=== PATIENT | female | born 1995 | race Caucasian/White ===

== ENCOUNTER 2017-05-20 06:25 | Inpatient (IN) | payer OTHER ==
[~2017-05-20] VITALS: Ht 162.6 cm; Wt 77.3 kg
[2017-05-20 07:06] VITALS: Ht 162.6 cm; Wt 77.3 kg
[2017-05-20 07:16] VITALS: BP 115/66; PULSE 85; RESP 16
[2017-05-20] MEDS ORDERED: LACTATED RINGER'S 1,000 ML IV SCH (07:17)
[2017-05-20] MEDS ORDERED: OXYTOCIN 30 UNITS/LR 500 ML IV PRN ×3 (07:30→14:30)
[2017-05-20] MEDS ORDERED: MISOPROSTOL 200 MCG TAB PR PRN ×3 (07:30→14:30)
[2017-05-20] MEDS ORDERED: METHYLERGONOVINE 0.2 MG INJ IM PRN ×3 (07:30→14:30)
[2017-05-20] MEDS ORDERED: CEFAZOLIN 2 GM/50 ML (PMX) 50 ML IV SCH (07:30)
[2017-05-20] MEDS ORDERED: CARBOPROST 250 MCG INJ IM PRN ×3 (07:30→14:30)
[2017-05-20 07:41] LABS: BASOPHIL # 0.1 10^3/ul (0.0-0.1); BASOPHILS % 0.6 % (0.0-2.0); EOSINOPHILS # 0.1 10^3/ul (0.0-0.5); EOSINOPHILS % 0.8 % (0.0-7.0); HEMATOCRIT 34.9 % (37.0-47.0); HEMOGLOBIN 11.3 g/dl (12.0-16.0); LYMPHOCYTES # 2.6 10^3/ul (0.8-2.9); LYMPHOCYTES % 27.7 % (15.0-51.0); MEAN CORPUSCULAR HEMOGLOBIN 26.9 pg (29.0-33.0); MEAN CORPUSCULAR HGB CONC 32.4 g/dl (32.0-37.0); MEAN CORPUSCULAR VOLUME 83.1 fl (82.0-101.0); MEAN PLATELET VOLUME 10.7 fl (7.4-10.4); MONOCYTE # 0.5 10^3/ul (0.3-0.9); MONOCYTES % 5.3 % (0.0-11.0); NEUTROPHIL # 6.2 10^3/ul (1.6-7.5); PLATELET COUNT 246 10^3/UL (140-415); RED CELL DISTRIBUTION WIDTH 15.8 % (11.5-14.5); WHITE BLOOD COUNT 9.5 10^3/ul (4.8-10.8)
[2017-05-20 08:00] LABS: INR 0.88; PROTIME 11.9 Sec (12.2-14.2); PT RATIO 0.9
[2017-05-20 08:01] LABS: PARTIAL THROMBOPLASTIN TIME 30.6 Sec (25.0-35.0)
[2017-05-20] MEDS ORDERED: morphine SULFATE/PF (10 MG/10 ML) INJ ONE (09:48)
[2017-05-20] MEDS ORDERED: METOCLOPRAMIDE 10 MG INJ ONE (09:48)
[2017-05-20] MEDS ORDERED: ONDANSETRON 4 MG INJ ONE (09:48)
[2017-05-20] MEDS ORDERED: KETOROLAC 30 MG INJ ONE (09:48)
[2017-05-20] MEDS ORDERED: OXYTOCIN 30 UNITS/LR 500 ML IV ONE ×2 (09:48→11:04)
[2017-05-20] MEDS ORDERED: PHENYLephrine (100 MCG/ML) 5ML SYG ONE (10:13)
[2017-05-20] MEDS ORDERED: morphine 4 MG/ML VIAL IV PRN (11:30)
[2017-05-20] MEDS ORDERED: morphine 2 MG INJ IV PRN ×2 (11:30)
[2017-05-20] MEDS ORDERED: DIPHENHYDRAMINE 50 MG INJ IV PRN ×2 (11:30)
[2017-05-20] MEDS ORDERED: NALOXONE (0.4 MG/ML) INJ IV PRN (11:30)
[2017-05-20] MEDS ORDERED: ONDANSETRON 4 MG INJ IV PRN ×2 (11:30)
[2017-05-20] MEDS ORDERED: morphine (1 MG/ML) 10ML SYRINGE IV PRN ×3 (11:30)
--- NOTE | 2017-05-20 11:36 | OPR ---
Operative Report Planned Procedure Free Text/Dictation 21 years old female EDC May 27, 2017 admitted at 39 weeks with a history of previous being prepared for this operation, complication of the surgery including but not limited to bowel bladder injury surgical site infection hemorrhage wound hematoma splint to her she is willing to proceed with the operation Procedure date May 20, 2017 Procedure(s) Repeat incidental right ovarian mucinous cyst cystectomy Performed by see signature line [employer] DR CHAI MARTINS Anesthesiologist: EHSAN BACA MD Pre-procedure diagnosis 39 weeks history of previous Anesthesia Type: spinal Post-Procedure Post-procedure diagnosis Repeat section and right ovarian cystectomy Findings Live Baby girl 9 and 9 weight 4160 g 9 lbs. 2 oz. Estimated Blood Loss: 500 - 600 mls Specimen(s) Right ovarian cyst wall, Grafts/Implant(s) none Complication(s) none Pt Condition post procedure: stable Procedure Description Under satisfactory spinal anesthesia patient prepped and draped and placed in supine position. Pfannenstiel incision was made old scar was removed ,incision carried through the subcutaneous tissue. Fascia incised to the length of incision. Rectus muscle divided in midline. Peritoneum exposed and entered to a vertical incision. Exploration of abdomen revealed [gravid uterus at term normal -appearing left tubes and ovary. Right ovary was cystic measured 5 x 5 cm it was punctured with the needle to test the content of the cyst it seemed to be mucinous type complete ovarian cystectomy was performed and healthy ovarian tissue repaired 3-0 chromic catgut] Bladder flap was developed. Transverse incision was made in the lower segment of the uterus. Amniotic sac ruptured, [ clear amniotic fluid noted.] Live baby girl was delivered from unengaged vertex.Naso oropharyngeal suction was performed. Baby handed to the team for immediate attention. Patient received 20 units of Pitocin. Placenta delivered manually intact. Uterine cavity cleaned with a wet sponge and drainage established. Uterus closed in 2 layers using Monocryl #1 in continuous fashion. Peritoneal cavity irrigated with warm saline right ovary inspected no bleeding from the suture line noted and it looked normal. Sponge needle instrument reported to be correct. Abdominal peritoneum closed with 2-0 chromic catgut continuously. Fascia closed with #1 PDS in a continuous fashion. Subcutaneous tissue irrigated with warm saline and approximated with 2-0 chromic catgut. Skin closed with N sorb. Estimated blood loss [600 cc]. Urine bag containing [200] mL of [clear] urine. Patient tolerated procedure well and transferred to recovery room in good condition. KAREN PARK MD May 20, 2017 11:33
--- NOTE | 2017-05-20 11:41 | HP ---
Date/Time of Note Date/Time of Note DATE: 05/20/17 TIME: 11:36 OB - History Hx of Present Free Text/Dictation 21 years old female with the history of previous , EDC May 27, 2017 admitted at 39 weeks gestation to [facility] for repeat this patient has been under the care of the [facility] and her was complicated with gestational diabetes diet-controlled. Chief Complaint: 39 weeks history of previous Estimated Due Date: May 27, 2017 : 2 Para: 1 Care: Good Care Ultrasounds: Normal mid trimester US Obstetrical Complications: Gestational Diabetes Medical Complications: None Past Family/Social History * Past Medical, Surgical, Family and Obstetric Histories reviewed from chart. Rubella: immune RPR/VDRL: Negative GBS Status: Negative HBsAG: Negative OB Admission Exam Vital Signs Vital Signs Vital Signs Date Time Temp Pulse Resp B/P Pulse Ox O2 Delivery O2 Flow Rate FiO2 05/20/17 07:16 98.1 85 16 115/66 Physical Exam HEENT: WNL Heart: Rhythm Normal Lungs: Clear, Equal Abdomen: WNL Extremities: Normal Reflexes: Normal Membranes: Intact Heart Rate: 130's Accelerations: Accelerations Present Decelerations: No Decelerations Varibility: Moderate Contractions on Admission: None Last 72 hours Lab Results CBC & BMP 05/20/17 07:23 OB Assessment/Plan Reason for admission: other (39 weeks history of previous C- section admitted for repeat ) Plan: Section Other plan: 21 years old 39 weeks history of previous admitted to [facility] to undergo repeat section complication of the surgery including but not limited to bowel bladder injury infection wound hematoma was discussed with the patient and she is willing to go ahead with this procedure' KAREN PARK MD May 20, 2017 11:41
[2017-05-20] MEDS: OXYTOCIN 30 UNITS/LR 500 ML IV SCH ×5 (11:51→23:20)
[2017-05-20 14:00] VITALS: BP 133/86; PULSE 75; RESP 18
[2017-05-20] MEDS ORDERED: OXYTOCIN 30 UNITS/LR 500 ML IV SCH (14:13)
[2017-05-20 14:30] VITALS: BP 128/86; RESP 18
[2017-05-20] MEDS ORDERED: OXYCODONE/ACETAMINOPHEN (5/325) TAB PO PRN ×2 (14:30)
[2017-05-20] MEDS ORDERED: HYDROCODONE/APAP (5/325) TAB PO PRN ×2 (14:30)
[2017-05-20] MEDS ORDERED: CEFAZOLIN 1 GM/50 ML (PMX) 50 ML IVPB SCH ×2 (14:30)
[2017-05-20] MEDS ORDERED: LANOLIN 7 GM TUBE TOP PRN (14:30)
[2017-05-20] MEDS ORDERED: GLUCOSE GEL 15 GRAM TUBE PO PRN ×2 (15:00)
[2017-05-20] MEDS ORDERED: GLUCOSE GEL 15 GRAM TUBE BUCCAL PRN (15:00)
[2017-05-20] MEDS ORDERED: GLUCAGON 1 MG INJ IM PRN (15:00)
[2017-05-20] MEDS ORDERED: DEXTROSE 50% 50 ML SYRINGE IV PRN ×2 (15:00)
[2017-05-20 15:50] VITALS: BP 113/69; PULSE 80; RESP 18
[2017-05-20] MEDS: KETOROLAC 30 MG INJ IV PRN (17:57)
[2017-05-20] MEDS: ACCU-CHEK XX SCH (20:05)
[2017-05-20] MEDS: SENNA/DOCUSATE NA (8.6MG/50MG) TAB PO SCH (20:49)
[2017-05-20] MEDS: LACTATED RINGER'S 1,000 ML IV SCH ×2 (21:30→22:13)
[2017-05-21] MEDS: OXYTOCIN 30 UNITS/LR 500 ML IV SCH ×5 (02:13→22:13)
[2017-05-21] MEDS: LACTATED RINGER'S 1,000 ML IV SCH ×3 (06:37→22:13)
[2017-05-21] MEDS: ACCU-CHEK XX SCH (07:30)
[2017-05-21] MEDS: SENNA/DOCUSATE NA (8.6MG/50MG) TAB PO SCH ×2 (08:26→20:58)
[2017-05-21] MEDS: KETOROLAC 30 MG INJ IV PRN (09:47)
[2017-05-21 10:01] LABS: BASOPHIL # 0.1 10^3/ul (0.0-0.1); BASOPHILS % 0.6 % (0.0-2.0); EOSINOPHILS % 0.4 % (0.0-7.0); HEMATOCRIT 31.4 % (37.0-47.0); LYMPHOCYTES # 1.8 10^3/ul (0.8-2.9); LYMPHOCYTES % 19.2 % (15.0-51.0); MEAN CORPUSCULAR HEMOGLOBIN 26.7 pg (29.0-33.0); MEAN CORPUSCULAR HGB CONC 31.8 g/dl (32.0-37.0); MEAN PLATELET VOLUME 11.1 fl (7.4-10.4); MONOCYTE # 0.4 10^3/ul (0.3-0.9); MONOCYTES % 4.7 % (0.0-11.0); NEUTROPHIL # 6.9 10^3/ul (1.6-7.5); NEUTROPHILS % 74.7 % (39.0-77.0); PLATELET COUNT 215 10^3/UL (140-415); RED BLOOD COUNT 3.74 10^6/ul (4.20-5.40); RED CELL DISTRIBUTION WIDTH 15.6 % (11.5-14.5); WHITE BLOOD COUNT 9.3 10^3/ul (4.8-10.8)
--- NOTE | 2017-05-21 12:55 | PN ---
Date/Time of Note Date/Time of Note DATE: 05/21/17 TIME: 12:54 OB Subjective Subjective Subjective No complaints. Ambulating. Tolerating regular diet. Passing flatus. Pain controlled. OB Objective Objective Objective Gen: NAD Abd: I-C/D/I OB Assessment/Plan Other Assessment: POD1 Other plan: -continue routine postop care -anticipate discharge home 2-3 days ROSE MARIE LUNA May 21, 2017 12:55
[2017-05-21] MEDS: IBUPROFEN 600 MG TAB PO SCH (18:29)
[2017-05-21 19:35] VITALS: BP 122/71; PULSE 90; RESP 90
--- NOTE | 2017-05-21 21:23 | PN ---
Date/Time of Note Date/Time of Note DATE: 05/21/17 TIME: 21:21 Assessment/Plan VTE Prophylaxis VTE Prophylaxis Intervention: ambulation Lines/Catheters IV Catheter Type (from Nrsg): Peripheral IV Subjective 24 Hr Interval Summary Free Text/Dictation Anesthesia note A 21 year female s/p duramorpf pod 1 is doing fine. no pain, back pain, n/v, nerve deficit, back pain, headache. back is clean, no infection. care per surgery Exam/Review of Systems Vital Signs Vitals Vital Signs Date Time Temp Pulse Resp B/P Pulse Ox O2 Delivery O2 Flow Rate FiO2 05/21/17 05:28 96 21 05/20/17 15:50 98.0 80 18 113/69 Room Air Intake and Output 05/20/17 05/20/17 05/21/17 15:00 23:00 07:00 Intake Total 1750 ml 575 ml 1462 ml Output Total 1600 ml 400 ml 700 ml Balance 150 ml 175 ml 762 ml Results Result Diagram: 05/21/17 0748 05/20/17 0723 Results 24 hrs Laboratory Tests Test 05/20/17 21:47 05/21/17 07:48 05/21/17 08:09 05/21/17 11:23 Bedside Glucose 72 76 104 White Blood Count 9.3 Red Blood Count 3.74 L Hemoglobin 10.0 L Hematocrit 31.4 L Mean Corpuscular Volume 84.0 Mean Corpuscular Hemoglobin 26.7 L Mean Corpuscular Hemoglobin Concent 31.8 L Red Cell Distribution Width 15.6 H Platelet Count 215 Mean Platelet Volume 11.1 H Neutrophils % 74.7 Lymphocytes % 19.2 Monocytes % 4.7 Eosinophils % 0.4 Basophils % 0.6 Nucleated Red Blood Cells % 0.0 Neutrophils # 6.9 Lymphocytes # 1.8 Monocytes # 0.4 Eosinophils # 0.0 Basophils # 0.1 Nucleated Red Blood Cells # 0.0 Test 05/21/17 14:57 05/21/17 20:42 Bedside Glucose 123 105 Medications Medications Current Medications Acetaminophen/ Hydrocodone Bitart ([place]ins (5/325)) 1 tab Q4H PRN PO PAIN LEVEL 4 -6; Start 05/20/17 at 14:30 Acetaminophen/ Hydrocodone Bitart ([place]lins (5/325)) 2 tab Q4H PRN PO PAIN LEVEL 7 -10; Start 05/20/17 at 14:30 Oxycodone/ Acetaminophen (Percocet (5/ 325)) 1 tab Q4H PRN PO PAIN LEVEL 4-6; Start 05/20/17 at 14:30 Oxycodone/ Acetaminophen (Percocet (5/ 325)) 2 tab Q4H PRN PO PAIN LEVEL 7-10; Start 05/20/17 at 14:30 Ibuprofen (Motrin) 600 mg Q6 PO Last administered on 05/21/17 18:29; Admin Dose 600 MG; Start 05/21/17 at 12:00 Simethicone (Mylicon) 160 mg Q8H PRN PO DISTENSION/GAS/BLOATING; Start at 14:30 Senna/Docusate Sodium (Senokot-S) 1 tab BID PO Last administered on 05/21/17 20:58; Admin Dose 1 TAB; Start 05/20/17 at 21:00 Diphtheria/ Tetanus/Acell Pertussis 0.5 ml 0.5 ml ONCE ONCE IM* ; Start at 09:00; Stop 05/23/17 at 09:01 Lactated Ringer's 1,000 ml @ 125 mls/hr Q8H IV Last administered on 06:37; Admin Dose 125 MLS/HR; Start 05/20/17 at 14:13 Oxytocin/Lactated Ringer's 500 ml @ 0 mls/hr ONCE PRN IV For Hemorrhage Management; Start 05/20/17 at 14:30 Methylergonovine Maleate (Methergine) 0.2 mg ONCE PRN IM VAGINAL BLEEDING; Start 05/20/17 at 14:30 Carboprost Tromethamine (Hemabate) 250 mcg ONCE PRN IM VAGINAL BLEEDING; Start 05/20/17 at 14:30 Misoprostol 1000 mcg 1,000 mcg ONCE PRN [place] VAGINAL BLEEDING; Start 05/20/17 at 14:30 Oxytocin/Lactated Ringer's 500 ml @ 125 mls/hr Q4H IV Last administered on 03:08; Admin Dose 125 MLS/HR; Start 05/20/17 at 14:13 Diagnostic Test (Pha) (Accu-Chek) 1 ea FBSPP XX ; Start 05/20/17 at 20:05 Miscellaneous Information 1 ea NOTE XX ; Start 05/20/17 at 15:00 Glucose (Glutose) 15 gm Q15M PRN PO DECREASED GLUCOSE; Start 05/20/17 at 15:00 Glucose (Glutose) 22.5 gm Q15M PRN PO DECREASED GLUCOSE; Start 05/20/17 at 15: 00 Dextrose (D50w Syringe) 25 ml Q15M PRN IV DECREASED GLUCOSE; Start 05/20/17 at 15:00 Dextrose (D50w Syringe) 50 ml Q15M PRN IV DECREASED GLUCOSE; Start 05/20/17 at 15:00 Glucagon (Glucagen) 1 mg Q15M PRN IM DECREASED GLUCOSE; Start 05/20/17 at 15: 00 Glucose (Glutose) 15 gm Q15M PRN BUCCAL DECREASED GLUCOSE; Start 05/20/17 at 15:00 EHSAN BACA MD May 21, 2017 21:23
[2017-05-22] MEDS: IBUPROFEN 600 MG TAB PO SCH ×4 (00:17→17:57)
[2017-05-22] MEDS: OXYTOCIN 30 UNITS/LR 500 ML IV SCH ×3 (02:13→10:13)
[2017-05-22] MEDS: LACTATED RINGER'S 1,000 ML IV SCH (06:13)
[2017-05-22 08:15] VITALS: BP 125/80; PULSE 83; RESP 18
[2017-05-22] MEDS: SENNA/DOCUSATE NA (8.6MG/50MG) TAB PO SCH ×2 (09:31→21:00)
[2017-05-22] MEDS ORDERED: NA PHOSPHATE/BIPHOS 133 ML ENEMA PR ONE (11:00)
--- NOTE | 2017-05-22 11:39 | QN ---
Documentation Comment Post day 2 Afebrile, signs are stable,, abdomen soft, uterus firm, lochia normal, incision dry, bowel sounds present, no BM, ambulation encouraged, if no BM by this evening fleets enema recommended KAREN PARK MD May 22, 2017 11:39
[2017-05-22 16:03] VITALS: BP 118/59; PULSE 75; RESP 20
[2017-05-22 20:40] VITALS: BP 105/88; PULSE 80; RESP 17
[2017-05-23] MEDS: IBUPROFEN 600 MG TAB PO SCH ×3 (00:04→12:05)
[2017-05-23 04:00] VITALS: BP 105/88; PULSE 80; RESP 17
[2017-05-23 08:00] VITALS: BP 110/70; PULSE 75; RESP 18
[2017-05-23] MEDS: SENNA/DOCUSATE NA (8.6MG/50MG) TAB PO SCH (08:57)
[2017-05-23] MEDS ORDERED: DIPHTH/TET/ACEL PERTUSS (ADULT) 0.5 ML VIAL IM* ONE (09:00)
[2017-05-23] MEDS ORDERED: INFLUENZA VIRUS VACCINE 0.5 ML (DISPENSING) IM* ONE (09:00)
--- NOTE | 2017-05-23 13:12 | QN ---
Documentation Comment Patient is postop day 3 status post Patient stable and afebrile She is ambulating, positive flatus, positive voiding urine Vital signs stable Abdomen soft nontender /nondistended Incision clean dry intact Extremities nontender CBC within normal limits Assessment and plan We will discharge patient home today Prescription for Motrin was given Patient instructed to follow-up with her own [employer] in 2 weeks and again in 6 weeks ROMEO LAINEZ MD May 23, 2017 13:12
--- NOTE | 2017-05-23 13:14 | DS ---
Date/Time of Note Date/Time of Note DATE: 05/23/17 TIME: 13:14 Obstetrical Discharge Record Final Diagnosis Final Diagnosis: Term delivered Section Section: Repeat Condition on Discharge Physical Assessment Voiding: Yes Bowel Movement: Yes Breast: Soft, non-tender Fundus: Firm Calf Tenderness: No Patient Condition: Good Copies To: CC: KAREN PARK MD, BAHAREH MD May 23, 2017 13:14
== END 2017-05-23 14:25 | disposition home or self-care (01) | DRG 766 ==
LOC: L-D 06:25 → PP1 14:15
PROVIDERS: ADMIT Obstetrics & Gynecology; ATTEND Obstetrics & Gynecology
PROC: 0UB00ZZ Excision of Right Ovary, Open Approach (ICD-10-PCS; 2017-05-20)
PROC: 3E033VJ Introduction of Other Hormone into Peripheral Vein, Percutaneous Approach (ICD-10-PCS; 2017-05-20)
PROC: 10D00Z1 Extraction of Products of Conception, Low, Open Approach (ICD-10-PCS; principal; 2017-05-20 09:00)
DX: O34.211 Maternal care for low transverse scar from previous cesarean delivery (principal); O24.429 Gestational diabetes mellitus in childbirth, unspecified control; O34.83 Maternal care for other abnormalities of pelvic organs, third trimester; Z37.0 Single live birth; Z3A.39 39 weeks gestation of pregnancy
CPT/HCPCS: 82947; 82962; 85025; 85610; 85730; 86592; 86850; 86900; 86901; 87340; 90686; 90715; 94760; 99464; J0690; J1200; J1885; J2274; J2370; J2405; J2590; J2765; J7120